=== PATIENT | female | born 1945 | race Caucasian/White ===

== ENCOUNTER → 2016-09-02 | Outpatient (CLI) | payer MEDICARE, OTHER ==
[2016-09-02 10:38] VITALS: BP 145/85; PULSE 76; RESP 16; TEMP 97.3; BMI 28.9
--- NOTE | 2016-09-02 10:44 | P.HPBAR ---
Bariatric H&P - History & Physicial H&P Date: 09/02/16 History & Physicial: Visit/CC: Band fill Patient initial contact: Initial weight: 108.862 kg Initial weight in pounds: 240.00 Height: 5 ft 5 in Initial BMI: 39.9 Last weight: Current weight: 78.953 kg Current weight in pounds: 174.00 Current BMI: 28.9 [place] body weight (based on NIH guidelines): 56.99 kg Excess body weight loss: 57.7% The patient is a 71 year-old F who presents for Bariatric Assessment. The patient presents today for lab band fill. She currently feels hungry. She has gained some weight since her last visit. Past Medical History Past Medical History: Diabetes Mellitus, Hyperlipidemia, Hypertension History of Any Multi-Drug Resistant Organisms: None Reported Past Surgical History: Bariatric Surgery, Cholecystectomy, Hysterectomy, Orthopedic Surgery Additional Past Surgical History / Comment(s): sinus surgery right wrist surgery small bowel obstruction lap band 2004 carpal tunnel left hand 2010 lipma removed 2010 Past Anesthesia/Blood Transfusion Reactions: No Reported Reaction Past Psychological History: Depression Smoking Status: Never smoker Past Alcohol Use History: None Reported Past Drug Use History: None Reported Surgical - Exam Vital Signs Temp Pulse Resp BP 97.3 F L 76 16 145/85 09/02/16 10:32 09/02/16 10:32 09/02/16 10:32 09/02/16 10:32 - General well developed, no distress - Eyes PERRL - ENT normal pinna - Neck no masses - Respiratory normal expansion - Cardiovascular Rhythm: regular - Abdomen Abdomen: soft, non tender Bariatric Assessment & Plan Plan: The patient LAP-BAND was adjusted. She had 0.3 mL added to her band. She currently has 3.2 mL in her band. She was able to water without difficulty. She'll follow-up in one month Bariatric Checklist Checklist: Plan: Checklist: EGD: 1. Hiatal hernia: 2. H. Pylori: HgbA1c: Vitamin D: Smoking: Never smoker Primary care physician referral: Dr. baumann/[facility] Psychiatry clearance: Cardiology clearance: Sleep study: Diet journal: VTE risk score: VTE risk level: Rehab needs at discharge:
== END | disposition home or self-care (01) ==
LOC: BARWHC3 10:07
PROVIDERS: ATTEND Surgery
DX: Z48.815 Encounter for surgical aftercare following surgery on the digestive system (principal); E11.9 Type 2 diabetes mellitus without complications; E78.5 Hyperlipidemia, unspecified; I10 Essential (primary) hypertension; F32.9 Major depressive disorder, single episode, unspecified; Z98.84 Bariatric surgery status
CPT/HCPCS: 99212

== ENCOUNTER → 2016-09-16 | Outpatient (CLI) | payer MEDICARE, OTHER ==
[2016-09-16 13:40] VITALS: BP 110/58; PULSE 84; TEMP 98.2; BMI 28.1
--- NOTE | 2016-09-16 13:44 | P.HPBAR ---
Bariatric H&P - History & Physicial H&P Date: 09/16/16 History & Physicial: Visit/CC: fluid removal lap band Patient initial contact: Initial weight: 108.862 kg Initial weight in pounds: 240.00 Height: 5 ft 5 in Initial BMI: 39.9 Last weight: Current weight: 76.657 kg Current weight in pounds: 169.00 Current BMI: 28.1 [place] body weight (based on NIH guidelines): 56.699 kg Excess body weight loss: 61.7% The patient is a 71 year-old F who presents for Bariatric Assessment. Patient states that she's had some problems with dysphagia. She is requesting some fluid removed from her LAP-BAND. Past Medical History Past Medical History: Diabetes Mellitus, Hyperlipidemia, Hypertension History of Any Multi-Drug Resistant Organisms: None Reported Past Surgical History: Bariatric Surgery, Cholecystectomy, Hysterectomy, Orthopedic Surgery Additional Past Surgical History / Comment(s): sinus surgery right wrist surgery small bowel obstruction lap band 2004 carpal tunnel left hand 2009 lipma removed 2010 Past Anesthesia/Blood Transfusion Reactions: No Reported Reaction Past Psychological History: Depression Smoking Status: Never smoker Past Alcohol Use History: None Reported Past Drug Use History: None Reported Surgical - Exam Vital Signs Temp Pulse BP 98.2 F 84 110/58 09/16/16 13:32 09/16/16 13:32 09/16/16 13:32 - General well developed, no distress - Eyes PERRL - ENT normal pinna - Neck no masses - Respiratory normal expansion - Cardiovascular Rhythm: regular - Abdomen Abdomen: soft, non tender Bariatric Assessment & Plan Plan: Dysphagia. 0.2 mL of was removed from her LAP-BAND. She is able water without difficulty. She'll follow-up in one month. Bariatric Checklist Checklist: Plan: Checklist: EGD: 1. Hiatal hernia: 2. H. Pylori: HgbA1c: Vitamin D: Smoking: Never smoker Primary care physician referral: Dr. baumann/[facility] Psychiatry clearance: Cardiology clearance: Sleep study: Diet journal: VTE risk score: VTE risk level: Rehab needs at discharge:
== END ==
LOC: BARWHC3 12:52
PROVIDERS: ATTEND Surgery
DX: R13.10 Dysphagia, unspecified (principal); Z98.84 Bariatric surgery status
CPT/HCPCS: 99212

== ENCOUNTER → 2016-11-18 | Outpatient (CLI) | payer MEDICARE ==
[2016-11-18 14:39] VITALS: BP 130/64; PULSE 79; RESP 16; TEMP 98.6; BMI 28.5
--- NOTE | 2016-12-02 17:11 | P.HPBAR ---
Bariatric H&P - History & Physicial H&P Date: 11/18/16 History & Physicial: Visit/CC: band fill Patient initial contact: Initial weight: 108.862 kg Initial weight in pounds: 240.00 Height: 5 ft 5 in Initial BMI: 39.9 Last weight: Current weight: 77.836 kg Current weight in pounds: 171.60 Current BMI: 28.5 [place] body weight (based on NIH guidelines): 56.699 kg Excess body weight loss: 59.4% The patient is a 71 year-old F who presents for Bariatric Assessment. Patient feels her LAP-BAND is to take. She is requesting an adjustment. Past Medical History Past Medical History: Diabetes Mellitus, Hyperlipidemia, Hypertension History of Any Multi-Drug Resistant Organisms: None Reported Past Surgical History: Bariatric Surgery, Cholecystectomy, Hysterectomy, Orthopedic Surgery Additional Past Surgical History / Comment(s): sinus surgery right wrist surgery small bowel obstruction lap band 2004 carpal tunnel left hand 2009 lipma removed 2010 Past Anesthesia/Blood Transfusion Reactions: No Reported Reaction Smoking Status: Never smoker Surgical - Exam Vital Signs Temp Pulse Resp BP 98.6 F 79 16 130/64 11/18/16 14:27 11/18/16 14:27 11/18/16 14:27 11/18/16 14:27 - Abdomen Abdomen: soft, non tender Bariatric Assessment & Plan Plan: Patient LAP-BAND was adjusted. She had 0.3 mL removed from her band. She was able require without difficulty. She'll follow-up in one month. Bariatric Checklist Checklist: Plan: Checklist: EGD: 1. Hiatal hernia: 2. H. Pylori: HgbA1c: Vitamin D: Smoking: Never smoker Primary care physician referral: Dr. enriquez/[facility] Psychiatry clearance: Cardiology clearance: Sleep study: Diet journal: VTE risk score: VTE risk level: Rehab needs at discharge:
== END | disposition home or self-care (01) ==
LOC: BARWHC3 12:46
PROVIDERS: ATTEND Surgery
DX: Z48.815 Encounter for surgical aftercare following surgery on the digestive system (principal); Z98.84 Bariatric surgery status
CPT/HCPCS: 99212

== ENCOUNTER → 2017-03-10 | Outpatient (CLI) | payer MEDICARE, OTHER ==
[2017-03-10 13:09] VITALS: BP 122/62; PULSE 84; TEMP 98.2; BMI 29.1
--- NOTE | 2017-03-10 15:27 | P.HPBAR ---
Bariatric H&P - History & Physicial H&P Date: 03/10/17 History & Physicial: Visit/CC: lap band fill Patient initial contact: Initial weight: 108.862 kg Initial weight in pounds: 240.00 Height: 5 ft 5 in Initial BMI: 39.9 Last weight: 171 Current weight: 79.515 kg Current weight in pounds: 175.30 Current BMI: 29.1 [place] body weight (based on NIH guidelines): 56.699 kg Excess body weight loss: 56.2% The patient is a 71 year-old F who presents for Bariatric Assessment. The patient presents today for lab band follow up. She currently feels hungry. She is requesting a fill of her LAP-BAND. Past Medical History Past Medical History: Diabetes Mellitus, Hyperlipidemia, Hypertension History of Any Multi-Drug Resistant Organisms: None Reported Past Surgical History: Bariatric Surgery, Cholecystectomy, Hysterectomy, Orthopedic Surgery Additional Past Surgical History / Comment(s): sinus surgery right wrist surgery small bowel obstruction lap band 2004 carpal tunnel left hand 2009 lipma removed 2010 Past Anesthesia/Blood Transfusion Reactions: No Reported Reaction Past Psychological History: Depression Smoking Status: Never smoker Past Alcohol Use History: None Reported Past Drug Use History: None Reported Surgical - Exam Vital Signs Temp Pulse BP 98.2 F 84 122/62 03/10/17 13:05 03/10/17 13:05 03/10/17 13:05 - General well developed, no distress - Abdomen Abdomen: soft, non tender Bariatric Assessment & Plan Plan: The patient LAP-BAND was adjusted. 0.3 mL was added to her LAP-BAND. She currently is 2.6 mL in the band. She will follow-up in one month. Bariatric Checklist Checklist: Plan: Checklist: EGD: 1. Hiatal hernia: 2. H. Pylori: HgbA1c: Vitamin D: Smoking: Never smoker Primary care physician referral: Dr. enriquez/[facility] Psychiatry clearance: Cardiology clearance: Sleep study: Diet journal: VTE risk score: VTE risk level: Rehab needs at discharge:
== END | disposition home or self-care (01) ==
LOC: BARWHC3 12:43
PROVIDERS: ATTEND Surgery
DX: Z48.815 Encounter for surgical aftercare following surgery on the digestive system (principal); Z98.84 Bariatric surgery status
CPT/HCPCS: 99212

== ENCOUNTER → 2017-04-21 | Outpatient (CLI) | payer MEDICARE, OTHER ==
[2017-04-21 13:29] VITALS: BP 145/83; PULSE 83; RESP 15; TEMP 97.7; BMI 28.9
--- NOTE | 2017-04-21 15:41 | P.HPBAR ---
Bariatric H&P - History & Physicial H&P Date: 04/21/17 History & Physicial: Visit/CC: band f/u (does not want an adjustment) Patient initial contact: Initial weight: 108.862 kg Initial weight in pounds: 240.00 Height: 5 ft 5 in Initial BMI: 39.9 Last weight: 175 Current weight: 78.925 kg Current weight in pounds: 174.00 Current BMI: 28.9 [place] body weight (based on NIH guidelines): 56.699 kg Excess body weight loss: 57.3% The patient is a 72 year-old F who presents for Bariatric Assessment. Patient presents today for lab band follow up. She's had some intermittent dysphagia. She thinks she is eating too quickly when she has mild GERD. She does not wish to have an adjustment. Past Medical History Past Medical History: Diabetes Mellitus, Hyperlipidemia, Hypertension Additional Past Medical History / Comment(s): Benign positional vertigo History of Any Multi-Drug Resistant Organisms: None Reported Past Surgical History: Bariatric Surgery, Cholecystectomy, Hysterectomy, Orthopedic Surgery Additional Past Surgical History / Comment(s): sinus surgery. right wrist surgery. small bowel obstruction. lap band 2004. carpal tunnel left hand 2009. lipoma removed 2010 Past Anesthesia/Blood Transfusion Reactions: No Reported Reaction Past Psychological History: Depression Smoking Status: Never smoker Past Alcohol Use History: None Reported Past Drug Use History: None Reported Surgical - Exam Vital Signs Temp Pulse Resp BP 97.7 F 83 15 145/83 04/21/17 13:21 04/21/17 13:21 04/21/17 13:21 04/21/17 13:21 - General well developed, no distress - Eyes PERRL - Abdomen Abdomen: soft, non tender Bariatric Assessment & Plan Plan: GERD. Patient will be observed. Patient will try to eat slower. If she has any significant dysphagia she will come back to the clinic to have her band adjusted. Bariatric Checklist Checklist: Plan: Checklist: EGD: 1. Hiatal hernia: 2. H. Pylori: HgbA1c: Vitamin D: Smoking: Never smoker Primary care physician referral: Dr. enriquez/[facility] Psychiatry clearance: Cardiology clearance: Sleep study: Diet journal: VTE risk score: VTE risk level: Rehab needs at discharge:
== END | disposition home or self-care (01) ==
LOC: BARWHC3 12:37
PROVIDERS: ATTEND Surgery
DX: Z09 Encounter for follow-up examination after completed treatment for conditions other than malignant neoplasm (principal); K21.9 Gastro-esophageal reflux disease without esophagitis; E11.9 Type 2 diabetes mellitus without complications; E78.5 Hyperlipidemia, unspecified; I10 Essential (primary) hypertension; F32.9 Major depressive disorder, single episode, unspecified; Z98.84 Bariatric surgery status
CPT/HCPCS: 99211

== ENCOUNTER → 2018-03-09 | Outpatient (CLI) | payer MEDICARE, OTHER ==
[2018-03-09 16:21] VITALS: BP 135/77; PULSE 87; TEMP 98.2; BMI 27.8
--- NOTE | 2018-03-09 18:24 | P.HPBAR ---
Bariatric H&P - History & Physicial H&P Date: 03/09/18 History & Physicial: Visit/CC: lap band Patient initial contact: Initial weight: 108.862 kg Initial weight in pounds: 240.00 Height: 5 ft 5 in Initial BMI: 39.9 Last weight: Current weight: 75.75 kg Current weight in pounds: 167.00 Current BMI: 27.8 [place] body weight (based on NIH guidelines): 56.699 kg Excess body weight loss: 63.4% The patient is a 72 year-old F who presents for Bariatric Assessment. Patient presents today for lab band follow. She is requesting to have some fluid remove her band. She's had issues with nausea vomiting. Also had pain at her port site. Past Medical History Past Medical History: Diabetes Mellitus, Hyperlipidemia, Hypertension, Osteoarthritis (OA) Additional Past Medical History / Comment(s): Benign positional vertigo , Degenerative Disc Disease, Over-active bladder, GI ulcer, Hiatal Hernia History of Any Multi-Drug Resistant Organisms: None Reported Past Surgical History: Bariatric Surgery, Bladder Surgery, Cholecystectomy, Ear Surgery, Hysterectomy, Orthopedic Surgery Additional Past Surgical History / Comment(s): "several" Myringotomy's (tubes in ears). Cholecystectomy 1983. sinus surgery 1984. right wrist surgery 1994. Hysterectomy & Bladder Suspension 1997. small bowel obstruction 2006. Laminectomy 2012. lap band 2004 (Port replaced in 2014). carpal tunnel left hand 2009. lipoma removed from back 2010. Valerio joint replaced on "right toe" 2016. Carpal tunnel Right hand 2018 Past Anesthesia/Blood Transfusion Reactions: No Reported Reaction Past Psychological History: Depression Smoking Status: Never smoker Past Alcohol Use History: None Reported Past Drug Use History: None Reported Surgical - Exam Vital Signs Temp Pulse BP 98.2 F 87 135/77 03/09/18 16:15 03/09/18 16:15 03/09/18 16:15 - General well developed, well nourished, no distress - Eyes PERRL - Abdomen Patient is markedly tender over the port site. I was unable to access the port site. Abdomen: tender Bariatric Assessment & Plan Plan: Due to the patient's significant abdominal pain we will schedule her for a CAT scan of the abdomen to evaluate for possible port site issues. Bariatric Checklist Checklist: Plan: Checklist: EGD: 1. Hiatal hernia: 2. H. Pylori: HgbA1c: Vitamin D: Smoking: Never smoker Primary care physician referral: Dr. enriquez/[facility] Psychiatry clearance: Cardiology clearance: Sleep study: Diet journal: VTE risk score: VTE risk level: Rehab needs at discharge:
== END | disposition home or self-care (01) ==
LOC: BARWHC3 15:44
PROVIDERS: ATTEND Surgery
DX: K95.09 Other complications of gastric band procedure (principal); R10.9 Unspecified abdominal pain; Z98.84 Bariatric surgery status
CPT/HCPCS: 99212

== ENCOUNTER → 2018-03-24 | Outpatient (CLI) | payer MEDICARE, OTHER ==
--- NOTE | 2018-03-24 12:26 | CT ---
EXAMINATION TYPE: CT abdomen pelvis w con DATE OF EXAM: 03/24/2018 COMPARISON: None HISTORY: Patient complains of LUQ pain. CT DLP: 1396 mGycm CONTRAST: CT scan of the abdomen and pelvis is performed with Oral Contrast and with IV Contrast, patient injec [place] with 100 mL of Isovue 300. FINDINGS: LUNG BASES-: No visible nodule. No infiltrate. LIVER/GB: Mild fatty liver. Cholecystectomy clips are in place. No space occupying hepatic lesion. Biliary tree is of normal caliber. PANCREAS: No inflammation. No distinct mass. SPLEEN: No splenic enlargement. No lesion seen. ADRENALS: No nodule. No thickening. KIDNEYS/BLADDER: No hydronephrosis. No nephrolithiasis. No distinct renal mass. Urinary bladder g rossly unremarkable. BOWEL: Normal appendix. Normal bowel caliber. No inflammation. Evidence of gastric banding procedur e with small hiatal hernia. GENITAL ORGANS: No gross abnormality. LYMPH NODES: No greater than 1cm abdominal or pelvic lymph nodes are appreciated. AORTA: No significant abnormality. OSSEOUS STRUCTURES: No significant abnormality is seen. OTHER: No significant additional abnormality is seen. IMPRESSION: 1. Mild hepatic steatosis. 2. Gastric banding procedure with small hiatal hernia.
== END ==
LOC: RADCTMAIN 09:26
PROVIDERS: ATTEND Surgery
DX: K76.0 Fatty (change of) liver, not elsewhere classified (principal); K44.9 Diaphragmatic hernia without obstruction or gangrene; K95.09 Other complications of gastric band procedure
CPT/HCPCS: 82565; 84520; 74177; 36415; Q9967

== ENCOUNTER → 2018-07-20 | Outpatient (CLI) | payer MEDICARE, OTHER ==
[2018-07-20 15:11] VITALS: BP 154/79; PULSE 94; RESP 16; TEMP 98.1; BMI 28.3
--- NOTE | 2018-07-20 15:17 | P.HPBAR ---
Bariatric H&P - History & Physicial H&P Date: 07/20/18 History & Physicial: Visit/CC: band follow-up Patient initial contact: Initial weight: 108.862 kg Initial weight in pounds: 240.00 Height: 5 ft 5 in Initial BMI: 39.9 Last weight: Current weight: 77.111 kg Current weight in pounds: 170.00 Current BMI: 28.3 [place] body weight (based on NIH guidelines): 56.699 kg Excess body weight loss: 60.8% The patient is a 73 year-old F who presents for Bariatric Assessment. Patient presents today for lab band follow up. She has some complaints of GERD. Past Medical History Past Medical History: Diabetes Mellitus, Hyperlipidemia, Hypertension, Osteoarthritis (OA) Additional Past Medical History / Comment(s): Benign positional vertigo , Degenerative Disc Disease, Over-active bladder, GI ulcer, Hiatal Hernia History of Any Multi-Drug Resistant Organisms: None Reported Past Surgical History: Bariatric Surgery, Bladder Surgery, Cholecystectomy, Ear Surgery, Hysterectomy, Orthopedic Surgery Additional Past Surgical History / Comment(s): "several" Myringotomy's (tubes in ears). Cholecystectomy 1983. sinus surgery 1984. right wrist surgery 1994. Hysterectomy & Bladder Suspension 1997. small bowel obstruction 2006. Laminectomy 2012. lap band 2004 (Port replaced in 2014). carpal tunnel left hand 2009. lipoma removed from back 2010. Valerio joint replaced on "right toe" 2016. Carpal tunnel Right hand 2018 Past Anesthesia/Blood Transfusion Reactions: No Reported Reaction Past Psychological History: Depression Smoking Status: Never smoker Past Alcohol Use History: None Reported Past Drug Use History: None Reported Surgical - Exam Vital Signs Temp Pulse Resp BP 98.1 F 94 16 154/79 07/20/18 15:08 07/20/18 15:08 07/20/18 15:08 07/20/18 15:08 - General well developed, well nourished, no distress - Eyes PERRL - ENT normal pinna - Cardiovascular Rhythm: regular - Abdomen Abdomen: soft, non tender Bariatric Assessment & Plan Plan: The patient's LAP-BAND had volume removed. 0.4 mL was removed. She currently is 2.2 mL in the band. She is able drink without difficulty. She'll follow-up in 8 weeks. Bariatric Checklist Checklist: Plan: Checklist: EGD: 1. Hiatal hernia: 2. H. Pylori: HgbA1c: Vitamin D: Smoking: Never smoker Primary care physician referral: Dr. enriquez/[facility] Psychiatry clearance: Cardiology clearance: Sleep study: Diet journal: VTE risk score: VTE risk level: Rehab needs at discharge:
== END | disposition home or self-care (01) ==
LOC: BARWHC3 14:58
PROVIDERS: ATTEND Surgery
DX: Z46.51 Encounter for fitting and adjustment of gastric lap band (principal); Z98.84 Bariatric surgery status; Z90.49 Acquired absence of other specified parts of digestive tract
CPT/HCPCS: 99212

== ENCOUNTER → 2018-11-23 | Outpatient (CLI) | payer MEDICARE, OTHER ==
[2018-11-23 13:26] VITALS: RESP 16
[2018-11-23 13:29] VITALS: BP 121/65; PULSE 775; TEMP 98.2; BMI 28.8
--- NOTE | 2018-12-11 13:51 | P.HPBAR ---
Bariatric H&P - History & Physicial H&P Date: 11/23/18 History & Physicial: Visit/CC: lap band fill Patient initial contact: Initial weight: 108.862 kg Initial weight in pounds: 240.00 Height: 5 ft 5 in Initial BMI: 39.9 Last weight: Current weight: 78.471 kg Current weight in pounds: 173.00 Current BMI: 28.8 [place] body weight (based on NIH guidelines): 56.699 kg Excess body weight loss: 58.2% The patient is a 73 year-old F who presents for Bariatric Assessment. Patient presents today for LAP-BAND adjustment. She currently feels hungry. She's had some minimal GERD. Past Medical History Past Medical History: Diabetes Mellitus, Hyperlipidemia, Hypertension, Osteoarthritis (OA) Additional Past Medical History / Comment(s): Benign positional vertigo , Degenerative Disc Disease, Over-active bladder, GI ulcer, Hiatal Hernia History of Any Multi-Drug Resistant Organisms: None Reported Past Surgical History: Bariatric Surgery, Bladder Surgery, Cholecystectomy, Ear Surgery, Hysterectomy, Orthopedic Surgery Additional Past Surgical History / Comment(s): "several" Myringotomy's (tubes in ears). Cholecystectomy 1983. sinus surgery 1984. right wrist surgery 1994. Hysterectomy & Bladder Suspension 1997. small bowel obstruction 2006. Laminectomy 2012. lap band 2004 (Port replaced in 2014). carpal tunnel left hand 2009. lipoma removed from back 2010. Valerio joint replaced on "right toe" 2016. Carpal tunnel Right hand 2018 Past Anesthesia/Blood Transfusion Reactions: No Reported Reaction Past Psychological History: Depression Smoking Status: Never smoker Past Alcohol Use History: None Reported Past Drug Use History: None Reported Surgical - Exam Vital Signs Temp Pulse Resp BP 98.2 F 775 H 16 121/65 11/23/18 13:20 11/23/18 13:20 11/23/18 13:20 11/23/18 13:20 - General well developed, well nourished, no distress - Abdomen Abdomen: soft, non tender Bariatric Assessment & Plan Plan: Several attempts were made to adjust the LAP-BAND. The patient had significant back pain with lifting her legs. Were unable to adjust the band. She'll follow-up in 4 weeks. Her GERD will be observed. Bariatric Checklist Checklist: Plan: Checklist: EGD: 1. Hiatal hernia: 2. H. Pylori: HgbA1c: Vitamin D: Smoking: Never smoker Primary care physician referral: Dr. enriquez/[facility] Psychiatry clearance: Cardiology clearance: Sleep study: Diet journal: VTE risk score: VTE risk level: Rehab needs at discharge:
== END | disposition home or self-care (01) ==
LOC: BARWHC3 12:35
PROVIDERS: ATTEND Surgery
DX: Z46.51 Encounter for fitting and adjustment of gastric lap band (principal); K21.9 Gastro-esophageal reflux disease without esophagitis; Z90.49 Acquired absence of other specified parts of digestive tract
CPT/HCPCS: 99212

== ENCOUNTER → 2019-02-01 | Outpatient (CLI) | payer MEDICARE, OTHER ==
[2019-02-01 15:36] VITALS: BP 140/62; PULSE 89; RESP 16; TEMP 98.2; BMI 29.9
--- NOTE | 2019-02-01 16:36 | P.HPBAR ---
Bariatric H&P - History & Physicial H&P Date: 02/01/19 History & Physicial: Visit/CC: Band ADj Patient initial contact: Initial weight: 108.862 kg Initial weight in pounds: 240.00 Height: 5 ft 5 in Initial BMI: 39.9 Last weight: Current weight: 81.647 kg Current weight in pounds: 180.00 Current BMI: 29.9 [place] body weight (based on NIH guidelines): 56.699 kg Excess body weight loss: 52.1% The patient is a 73 year-old F who presents for Bariatric Assessment. Patient requests to have LAP-BAND adjustment. Feels hungry. Past Medical History Past Medical History: Diabetes Mellitus, Hyperlipidemia, Hypertension, Osteoarthritis (OA) Additional Past Medical History / Comment(s): Benign positional vertigo , Degenerative Disc Disease, Over-active bladder, GI ulcer, Hiatal Hernia, increased (hypersensitivity) to pain sensation; sees a pain specialist History of Any Multi-Drug Resistant Organisms: None Reported Past Surgical History: Bariatric Surgery, Bladder Surgery, Cholecystectomy, Ear Surgery, Hysterectomy, Orthopedic Surgery Additional Past Surgical History / Comment(s): "several" Myringotomy's (tubes in ears). Cholecystectomy 1983. sinus surgery 1984. right wrist surgery 1994. Hysterectomy & Bladder Suspension 1997. small bowel obstruction 2006. Laminectomy 2012. lap band 2004 (Port replaced in 2014). carpal tunnel left hand 2009. lipoma removed from back 2010. Valerio joint replaced on "right toe" 2016. Carpal tunnel Right hand 2018 Past Anesthesia/Blood Transfusion Reactions: No Reported Reaction Past Psychological History: Depression Smoking Status: Never smoker Past Alcohol Use History: None Reported Past Drug Use History: None Reported Surgical - Exam Vital Signs Temp Pulse Resp BP 98.2 F 89 16 140/62 02/01/19 15:26 02/01/19 15:26 02/01/19 15:26 02/01/19 15:26 - General well developed, well nourished, no distress - Eyes PERRL - Abdomen Abdomen: soft, non tender Bariatric Assessment & Plan Plan: Patient's lap band was adjusted. She had 0.4 mL added to the band. She currently is 2.6 mL in the band. Bariatric Checklist Checklist: Plan: Checklist: EGD: 1. Hiatal hernia: 2. H. Pylori: HgbA1c: Vitamin D: Smoking: Never smoker Primary care physician referral: Dr. enriquez/[facility] Psychiatry clearance: Cardiology clearance: Sleep study: Diet journal: VTE risk score: VTE risk level: Rehab needs at discharge:
== END ==
LOC: BARWHC3 14:22
PROVIDERS: ATTEND Surgery
DX: Z46.51 Encounter for fitting and adjustment of gastric lap band (principal); Z98.84 Bariatric surgery status; Z90.49 Acquired absence of other specified parts of digestive tract
CPT/HCPCS: 99212

== ENCOUNTER → 2019-03-15 | Outpatient (CLI) | payer MEDICARE, OTHER ==
[2019-03-15 15:49] VITALS: BP 127/74; PULSE 108; TEMP 98.3; BMI 28.4
--- NOTE | 2019-03-19 16:02 | P.HPBAR ---
Bariatric H&P - History & Physicial H&P Date: 03/15/19 History & Physicial: Visit/CC: weight check Patient initial contact: Initial weight: 108.862 kg Initial weight in pounds: 240.00 Height: 5 ft 5 in Initial BMI: 39.9 Last weight: Current weight: 77.564 kg Current weight in pounds: 171.00 Current BMI: 28.4 [place] body weight (based on NIH guidelines): 56.699 kg Excess body weight loss: 60.0% The patient is a 73 year-old F who presents for Bariatric Assessment. Past Medical History Past Medical History: Diabetes Mellitus, Hyperlipidemia, Hypertension, Osteoarthritis (OA) Additional Past Medical History / Comment(s): Benign positional vertigo , Degenerative Disc Disease, Over-active bladder, GI ulcer, Hiatal Hernia, increased (hypersensitivity) to pain sensation; sees a pain specialist History of Any Multi-Drug Resistant Organisms: None Reported Past Surgical History: Bariatric Surgery, Bladder Surgery, Cholecystectomy, Ear Surgery, Hysterectomy, Orthopedic Surgery Additional Past Surgical History / Comment(s): "several" Myringotomy's (tubes in ears). Cholecystectomy 1983. sinus surgery 1984. right wrist surgery 1994. Hysterectomy & Bladder Suspension 1997. small bowel obstruction 2006. Laminectomy 2012. lap band 2004 (Port replaced in 2014). carpal tunnel left hand 2009. lipoma removed from back 2010. Valerio joint replaced on "right toe" 2016. Carpal tunnel Right hand 2018 Past Anesthesia/Blood Transfusion Reactions: No Reported Reaction Past Psychological History: Depression Smoking Status: Never smoker Past Alcohol Use History: None Reported Past Drug Use History: None Reported Surgical - Exam Vital Signs Temp Pulse BP 98.3 F 108 H 127/74 03/15/19 15:46 03/15/19 15:46 03/15/19 15:46 Bariatric Checklist Checklist: Plan: Checklist: EGD: 1. Hiatal hernia: 2. H. Pylori: HgbA1c: Vitamin D: Smoking: Never smoker Primary care physician referral: Dr. enriquez/[facility] Psychiatry clearance: Cardiology clearance: Sleep study: Diet journal: VTE risk score: VTE risk level: Rehab needs at discharge:
== END | disposition home or self-care (01) ==
LOC: BARWHC3 15:21
PROVIDERS: ATTEND Surgery
DX: Z09 Encounter for follow-up examination after completed treatment for conditions other than malignant neoplasm (principal); Z98.84 Bariatric surgery status; E66.01 Morbid (severe) obesity due to excess calories
CPT/HCPCS: 99211

== ENCOUNTER → 2019-04-12 | Outpatient (CLI) | payer MEDICARE, OTHER ==
[2019-04-12 16:16] VITALS: BP 132/81; PULSE 86; TEMP 97.9; BMI 28.4
--- NOTE | 2019-04-12 17:58 | P.HPBAR ---
Bariatric H&P - History & Physicial H&P Date: 04/12/19 History & Physicial: Visit/CC: band fluid removal Patient initial contact: Initial weight: 108.862 kg Initial weight in pounds: 240.00 Height: 5 ft 5 in Initial BMI: 39.9 Last weight: Current weight: 77.564 kg Current weight in pounds: 171.00 Current BMI: 28.4 [place] body weight (based on NIH guidelines): 56.699 kg Excess body weight loss: 60.0% The patient is a 73 year-old F who presents for Bariatric Assessment. Patient presents today for LAP-BAND adjustment. She currently has some dysphagia. She is requesting fluid removed from her band. Past Medical History Past Medical History: Diabetes Mellitus, Hyperlipidemia, Hypertension, Osteoarthritis (OA) Additional Past Medical History / Comment(s): Benign positional vertigo , Degenerative Disc Disease, Over-active bladder, GI ulcer, Hiatal Hernia, increased (hypersensitivity) to pain sensation; sees a pain specialist History of Any Multi-Drug Resistant Organisms: None Reported Past Surgical History: Bariatric Surgery, Bladder Surgery, Cholecystectomy, Ear Surgery, Hysterectomy, Orthopedic Surgery Additional Past Surgical History / Comment(s): "several" Myringotomy's (tubes in ears). Cholecystectomy 1983. sinus surgery 1984. right wrist surgery 1994. Hysterectomy & Bladder Suspension 1997. small bowel obstruction 2006. Laminectomy 2012. lap band 2004 (Port replaced in 2014). carpal tunnel left hand 2009. lipoma removed from back 2010. Valerio joint replaced on "right toe" 2016. Carpal tunnel Right hand 2018 Past Anesthesia/Blood Transfusion Reactions: No Reported Reaction Past Psychological History: Depression Smoking Status: Never smoker Past Alcohol Use History: None Reported Past Drug Use History: None Reported Surgical - Exam Vital Signs Temp Pulse BP 97.9 F 86 132/81 04/12/19 16:11 04/12/19 16:11 04/12/19 16:11 - General well developed, well nourished, no distress - Eyes PERRL - ENT normal pinna - Neck no masses - Respiratory normal expansion - Cardiovascular Rhythm: regular - Abdomen Abdomen: soft, non tender Bariatric Assessment & Plan Plan: Status post lap band surgery. Patient LAP-BAND was adjusted. She hasn't 0.3 mL remove her band. She denies 2.3 mL in the band. She'll follow-up in 3 weeks. Bariatric Checklist Checklist: Plan: Checklist: EGD: 1. Hiatal hernia: 2. H. Pylori: HgbA1c: Vitamin D: Smoking: Never smoker Primary care physician referral: Dr. enriquez/[facility] Psychiatry clearance: Cardiology clearance: Sleep study: Diet journal: VTE risk score: VTE risk level: Rehab needs at discharge:
== END ==
LOC: BARWHC3 15:23
PROVIDERS: ATTEND Surgery
DX: Z48.815 Encounter for surgical aftercare following surgery on the digestive system (principal); Z90.49 Acquired absence of other specified parts of digestive tract; Z98.84 Bariatric surgery status
CPT/HCPCS: 99212

== ENCOUNTER → 2019-07-26 | Outpatient (CLI) | payer MEDICARE, OTHER ==
[2019-07-26 14:55] VITALS: BP 148/88; PULSE 94; RESP 16; TEMP 98.3; BMI 26.9
== END | disposition home or self-care (01) ==
LOC: BARWHC3 12:32
PROVIDERS: ATTEND Surgery
DX: Z09 Encounter for follow-up examination after completed treatment for conditions other than malignant neoplasm (principal); Z98.84 Bariatric surgery status; E66.01 Morbid (severe) obesity due to excess calories; Z68.27 Body mass index [BMI] 27.0-27.9, adult
CPT/HCPCS: 99211

== ENCOUNTER → 2019-10-25 | Outpatient (CLI) | payer MEDICARE, OTHER ==
[2019-10-25 13:57] VITALS: BP 156/83; PULSE 88; RESP 20; TEMP 98.5; BMI 28.4
--- NOTE | 2019-10-25 14:05 | P.HPBAR ---
Bariatric H&P - History & Physicial H&P Date: 10/25/19 History & Physicial: Visit/CC: Requesting band fill, "eating too much, hungry all the time" Patient initial contact: Initial weight: 108.862 kg Initial weight in pounds: 240.00 Height: 5 ft 5 in Initial BMI: 39.9 Last weight: Current weight: 77.519 kg Current weight in pounds: 170.90 Current BMI: 28.4 [place] body weight (based on NIH guidelines): 56.699 kg Excess body weight loss: 60.0% The patient is a 74 year-old F who presents for Bariatric Assessment. Patient is requesting a fill of her band. She currently feels hungry. Past Medical History Past Medical History: Diabetes Mellitus, Hyperlipidemia, Hypertension, Osteoarthritis (OA) Additional Past Medical History / Comment(s): Benign positional vertigo , Degenerative Disc Disease, Over-active bladder, GI ulcer, Hiatal Hernia, increased (hypersensitivity) to pain sensation; sees a pain specialist History of Any Multi-Drug Resistant Organisms: None Reported Past Surgical History: Bariatric Surgery, Bladder Surgery, Cholecystectomy, Ear Surgery, Hysterectomy, Orthopedic Surgery Additional Past Surgical History / Comment(s): "several" Myringotomy's (tubes in ears). Cholecystectomy 1983. sinus surgery 1984. right wrist surgery 1994. Hysterectomy & Bladder Suspension 1997. small bowel obstruction 2006. Laminectomy 2012. lap band 2004 (Port replaced in 2014). carpal tunnel left hand 2009. lipoma removed from back 2010. Valerio joint replaced on "right toe" 2016. Carpal tunnel Right hand 2018 Past Anesthesia/Blood Transfusion Reactions: No Reported Reaction Smoking Status: Never smoker Surgical - Exam Vital Signs Temp Pulse Resp BP 98.5 F 88 20 156/83 10/25/19 13:54 10/25/19 13:54 10/25/19 13:54 10/25/19 13:54 - General well developed, well nourished, no distress - Eyes PERRL - ENT normal pinna - Neck no masses - Respiratory normal expansion - Cardiovascular Rhythm: regular - Abdomen Abdomen: soft, non tender Bariatric Assessment & Plan Plan: Patient's lap band was adjusted. She had 0.3 mL added to her band. She has 2 mL in the band. She's ill drink without difficulty. Bariatric Checklist Checklist: Plan: Checklist: EGD: 1. Hiatal hernia: 2. H. Pylori: HgbA1c: Vitamin D: Smoking: Never smoker Primary care physician referral: Dr. enriquez/[facility] Psychiatry clearance: Cardiology clearance: Sleep study: Diet journal: VTE risk score: VTE risk level: Rehab needs at discharge:
== END | disposition home or self-care (01) ==
LOC: BARWHC3 13:42
PROVIDERS: ATTEND Surgery
DX: Z46.51 Encounter for fitting and adjustment of gastric lap band (principal); Z98.84 Bariatric surgery status
CPT/HCPCS: 99212

== ENCOUNTER → 2020-01-03 | Outpatient (CLI) | payer MEDICARE, OTHER ==
--- NOTE | 2020-01-03 15:16 | P.HPBAR ---
Bariatric H&P - History & Physicial H&P Date: 01/03/20 History & Physicial: Visit/CC: lap band follow up Patient initial contact: Initial weight: 108.862 kg Initial weight in pounds: 240.00 Height: 5 ft 5 in Initial BMI: 39.9 Last weight: Current weight: 80.739 kg Current weight in pounds: 178.00 Current BMI: 29.6 [place] body weight (based on NIH guidelines): 56.699 kg Excess body weight loss: 53.9% The patient is a 74 year-old F who presents for Bariatric Assessment. Patient rents today for lab band follow. She is currently hungry. She is requesting a fill. Past Medical History Past Medical History: Diabetes Mellitus, Hyperlipidemia, Hypertension, Osteoarthritis (OA) Additional Past Medical History / Comment(s): Benign positional vertigo , Degenerative Disc Disease, Over-active bladder, GI ulcer, Hiatal Hernia, increased (hypersensitivity) to pain sensation; sees a pain specialist History of Any Multi-Drug Resistant Organisms: None Reported Past Surgical History: Bariatric Surgery, Bladder Surgery, Cholecystectomy, Ear Surgery, Hysterectomy, Orthopedic Surgery Additional Past Surgical History / Comment(s): "several" Myringotomy's (tubes in ears). Cholecystectomy 1983. sinus surgery 1984. right wrist surgery 1994. Hysterectomy & Bladder Suspension 1997. small bowel obstruction 2006. Laminectomy 2012. lap band 2004 (Port replaced in 2014). carpal tunnel left hand 2009. lipoma removed from back 2010. Valerio joint replaced on "right toe" 2016. Carpal tunnel Right hand 2018 Past Anesthesia/Blood Transfusion Reactions: No Reported Reaction Past Psychological History: Depression Smoking Status: Never smoker Past Alcohol Use History: None Reported Past Drug Use History: None Reported Surgical - Exam Vital Signs Temp Pulse BP 98.1 F 109 H 151/90 01/03/20 14:47 01/03/20 14:47 01/03/20 14:47 - General well developed, well nourished, no distress - Eyes PERRL - ENT normal pinna - Neck no masses - Respiratory normal expansion - Cardiovascular Rhythm: regular - Abdomen Abdomen: soft, non tender Bariatric Assessment & Plan Plan: Lab band was adjusted. She had 0.5 mL added to the band. She currently is 2.8 mL in the band. She'll follow-up in 4 weeks. She was ill drink water without difficulty. Bariatric Checklist Checklist: Plan: Checklist: EGD: 1. Hiatal hernia: 2. H. Pylori: HgbA1c: Vitamin D: Smoking: Never smoker Primary care physician referral: Dr. enriquez/[facility] Psychiatry clearance: Cardiology clearance: Sleep study: Diet journal: VTE risk score: VTE risk level: Rehab needs at discharge:
== END | disposition home or self-care (01) ==
CPT/HCPCS: 99212

== ENCOUNTER → 2021-02-05 | Outpatient (CLI) | payer MEDICARE, OTHER ==
[2021-02-05 15:02] VITALS: BP 176/81; PULSE 79; TEMP 97.9; BMI 22.9
--- NOTE | 2021-02-20 10:48 | P.HPBAR ---
Bariatric H&P - History & Physicial H&P Date: 02/05/21 History & Physicial: Visit/CC: labp and follow up Patient initial contact: Initial weight: 108.862 kg Initial weight in pounds: 240.00 Height: 5 ft 5 in Initial BMI: 39.9 Last weight: Current weight: 62.596 kg Current weight in pounds: 138.00 Current BMI: 22.9 [place] body weight (based on NIH guidelines): 56.699 kg Excess body weight loss: 88.6% The patient is a 75 year-old F who presents for Bariatric Assessment. Patient presents today for LAP-BAND follow-up. She has had minimal GERD. She is an excellent weight loss. She denies any dysphagia. Past Medical History Past Medical History: Diabetes Mellitus, Hyperlipidemia, Hypertension, Osteoarthritis (OA) Additional Past Medical History / Comment(s): Benign positional vertigo , Degenerative Disc Disease, Over-active bladder, GI ulcer, Hiatal Hernia, increased (hypersensitivity) to pain sensation; sees a pain specialist History of Any Multi-Drug Resistant Organisms: None Reported Past Surgical History: Bariatric Surgery, Bladder Surgery, Cholecystectomy, Ear Surgery, Hysterectomy, Orthopedic Surgery Additional Past Surgical History / Comment(s): "several" Myringotomy's (tubes in ears). Cholecystectomy 1983. sinus surgery 1984. right wrist surgery 1994. Hysterectomy & Bladder Suspension 1997. small bowel obstruction 2006. Laminectomy 2012. lap band 2004 (Port replaced in 2014). carpal tunnel left hand 2009. lipoma removed from back 2010. Valerio joint replaced on "right toe" 2016. Carpal tunnel Right hand 2018 Past Anesthesia/Blood Transfusion Reactions: No Reported Reaction Past Psychological History: Depression Smoking Status: Never smoker Past Alcohol Use History: None Reported Past Drug Use History: None Reported Surgical - Exam Vital Signs Temp Pulse BP 97.9 F 79 176/81 02/05/21 14:57 02/05/21 14:57 02/05/21 14:57 - General well developed, well nourished, no distress - Eyes PERRL - ENT normal pinna - Neck no masses - Respiratory normal expansion - Cardiovascular Rhythm: regular - Abdomen Abdomen: soft, non tender Bariatric Assessment & Plan Plan: Resolving morbid obesity. Patient's GERD is minimal and we'll observe her she'll follow-up in 4 weeks. Bariatric Checklist Checklist: Plan: Checklist: EGD: 1. Hiatal hernia: 2. H. Pylori: HgbA1c: Vitamin D: Smoking: Never smoker Primary care physician referral: Dr. enriquez/[facility] Psychiatry clearance: Cardiology clearance: Sleep study: Diet journal: VTE risk score: VTE risk level: Rehab needs at discharge:
== END | disposition home or self-care (01) ==
LOC: BARWHC3 14:41
PROVIDERS: ATTEND Surgery
DX: E66.01 Morbid (severe) obesity due to excess calories (principal); Z68.22 Body mass index [BMI] 22.0-22.9, adult
CPT/HCPCS: 99211

== ENCOUNTER → 2021-04-16 | Outpatient (CLI) | payer MEDICARE, OTHER ==
[2021-04-16 13:13] VITALS: BP 144/82; PULSE 74; RESP 18; TEMP 97.6; BMI 22.4
== END | disposition home or self-care (01) ==
LOC: BARWHC3 12:46
PROVIDERS: ATTEND Surgery
DX: E66.01 Morbid (severe) obesity due to excess calories (principal); Z68.22 Body mass index [BMI] 22.0-22.9, adult
CPT/HCPCS: 99211